=== PATIENT | male | born 2000 | race Caucasian/White ===

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

== ENCOUNTER 2021-12-23 21:49 | Emergency (ER) | payer OTHER ==
[~2021-12-23] VITALS: Ht 193 cm; Wt 108.9 kg
[~2021-12-23 21:49] MED LIST changes: +AMOXICILLIN500 M2 PO; +Motrin,Rufen800 MG PO
== END 2021-12-23 23:12 | disposition home or self-care (01) ==
LOC: ED 21:49
DX: S63.641A Sprain of metacarpophalangeal joint of right thumb, initial encounter (principal); S66.211A Strain of extensor muscle, fascia and tendon of right thumb at wrist and hand level, initial encounter; Z79.899 Other long term (current) drug therapy; Z79.2 Long term (current) use of antibiotics; X50.1XXA Overexertion from prolonged static or awkward postures, initial encounter; Y93.72 Activity, wrestling; Y92.89 Other specified places as the place of occurrence of the external cause; Y99.8 Other external cause status

== ENCOUNTER 2025-01-19 17:40 | Emergency (ER) | payer SELFPAY ==
[~2025-01-19] VITALS: Ht 193 cm; Wt 94.8 kg
== END 2025-01-19 18:44 | disposition home or self-care (01) ==
LOC: ED 17:40
DX: S60.211A Contusion of right wrist, initial encounter (principal); W10.9XXA Fall (on) (from) unspecified stairs and steps, initial encounter; Y93.89 Activity, other specified; Y92.89 Other specified places as the place of occurrence of the external cause; Y99.8 Other external cause status